=== PATIENT | male | born 1960 | race African-American/Black ===

== ENCOUNTER 2018-03-18 10:22 | Inpatient (IN) | payer MEDICAID, OTHER ==
[~2018-03-18] VITALS: Ht 170.2 cm; Wt 83.2 kg
[2018-03-18] MEDS ORDERED: ASPIRIN 81MG TABLET PO ONE (11:15)
[2018-03-18 12:28] LABS: BASOPHILS % 1.9 % (0.0-2.0); EOSINOPHILS % 0.2 % (0.0-5.0); HEMATOCRIT. 52.5 % (42.0-52.0); HEMOGLOBIN. 17.2 g/dL (14.0-18.0); MEAN CORPUSCULAR HEMOGLOBIN 28.3 pg (28.0-32.0); MEAN CORPUSCULAR VOLUME 86.6 fL (80.0-94.0); MEAN PLATELET VOLUME 9.7 fl (7.4-10.4); NEUTROPHILS % 62.9 % (40.0-76.0); PLATELET 328 x1000/uL (130-400); RED BLOOD CELL COUNT 6.07 mill/uL (4.7-6.1); RED CELL DISTRIBUTION WIDTH 18.7 % (11.6-14.6)
[2018-03-18 12:34] LABS: CHLORIDE 104 mEq/L (98-107)
[2018-03-18 13:44] LABS: *AMPHETAMINES SCREEN URINE PRESUMTIVE POSITIVE (NEGATIVE); *BARBITURATES SCREEN URINE NEGATIVE (NEGATIVE); *BENZODIAZEPINES SCREEN URINE NEGATIVE (NEGATIVE); *COCAINE SCREEN URINE PRESUMTIVE POSITIVE (NEGATIVE)
[2018-03-18 13:45] LABS: CANNABINOID URINE SCREEN PRESUMTIVE POSITIVE (NEGATIVE); METHADONE URINE SCREEN NEGATIVE (NEGATIVE); OPIATES URINE SCREEN NEGATIVE (NEGATIVE); PHENCYCLIDINE URINE SCREEN NEGATIVE (NEGATIVE)
[2018-03-18] MEDS ORDERED: ONDANSETRON HCL 4MG/2ML INJ IV PRN (15:30)
[2018-03-18] MEDS ORDERED: CLONIDINE 0.1MG TABLET PO PRN (15:30)
[2018-03-18] MEDS ORDERED: DOCUSATE SODIUM 100MG CAPSULE PO PRN (15:30)
[2018-03-18] MEDS ORDERED: ACETAMINOPHEN 325MG TABLET PO PRN (15:30)
[2018-03-18] MEDS ORDERED: NITROGLYCERIN 0.4MG TABLET SL SL PRN (15:30)
[2018-03-18] MEDS ORDERED: MAGNESIUM/ALUMINUM HYDROXIDE/SIMETHICONE 30ML UDC PO PRN (15:30)
[2018-03-18] MEDS ORDERED: GUAIFENESIN 200MG/10ML SUGAR FREE UDC PO PRN (15:30)
[2018-03-18] MEDS ORDERED: LORAZEPAM 0.5MG TABLET PO PRN (15:30)
[2018-03-18] MEDS ORDERED: NA PHOS,M-B/NA PHOS,DI-BA ENEMA 118ML PR PRN (15:30)
[2018-03-18] MEDS ORDERED: KETOROLAC 15MG/ML VIAL IV PRN (15:30)
[2018-03-18 15:45] VITALS: BP 134/93
[2018-03-18] MEDS ORDERED: ENOXAPARIN 40MG/0.4ML SYR SUBCUT SCH (17:00)
[2018-03-18] MEDS: DILTIAZEM HCL 60MG TABLET PO SCH ×2 (17:08→23:42)
[2018-03-18] MEDS ORDERED: DEXTROSE 50% WATER 50ML SYRINGE IV PRN (19:15)
[2018-03-18 20:00] VITALS: BP 102/70
[2018-03-18] MEDS: BLOOD SUGAR DIAGNOSTIC STRIP TEST SCH (20:12)
[2018-03-18] MEDS: INSULIN LISPRO 100 UNITS/ML SUBCUT SCH (20:19)
[2018-03-18] MEDS: IPRATROPIUM/ALBUTEROL 0.5-3(2.5)MG/3ML NEB INH PRN (20:23)
[2018-03-18] MEDS ORDERED: FAMOTIDINE 20MG TABLET PO SCH (21:00)
[2018-03-18] MEDS ORDERED: ZOLPIDEM TARTRATE 5MG TABLET PO PRN (21:00)
[2018-03-19] VITALS: BP 100/75
[2018-03-19] MEDS: IPRATROPIUM/ALBUTEROL 0.5-3(2.5)MG/3ML NEB INH PRN (00:43)
[2018-03-19 01:24] LABS: CREATINE KINASE MB FRACTION 1.9 ng/mL (0.5-3.6)
[2018-03-19 04:00] VITALS: BP 115/75
[2018-03-19] MEDS: DILTIAZEM HCL 60MG TABLET PO SCH ×2 (06:08→13:54)
[2018-03-19] MEDS: BLOOD SUGAR DIAGNOSTIC STRIP TEST SCH ×2 (06:24→12:20)
[2018-03-19 07:45] LABS: CREATINE KINASE 74 IU/L (39-308)
[2018-03-19 07:46] LABS: CREATINE KINASE MB FRACTION 1.8 ng/mL (0.5-3.6)
[2018-03-19] MEDS: INSULIN LISPRO 100 UNITS/ML SUBCUT SCH ×2 (07:50→13:50)
[2018-03-19 08:00] VITALS: BP 125/88
[2018-03-19] MEDS ORDERED: ASPIRIN 325MG EC TABLET PO SCH (09:00)
[2018-03-19 10:43] VITALS: BP 125/80
[2018-03-19 13:54] VITALS: BP 117/88
== END 2018-03-19 14:10 | disposition home or self-care (01) | DRG 816 ==
LOC: ER 10:22 → 6WST 13:07 → EDBEDREQ 13:12 → ENRESERV 13:15
PROVIDERS: ADMIT Internal Medicine; ATTEND Internal Medicine
DX: T40.5X1A Poisoning by cocaine, accidental (unintentional), initial encounter (principal); N17.0 Acute kidney failure with tubular necrosis; F14.10 Cocaine abuse, uncomplicated; E87.1 Hypo-osmolality and hyponatremia; F17.210 Nicotine dependence, cigarettes, uncomplicated; R74.0 Nonspecific elevation of levels of transaminase and lactic acid dehydrogenase [LDH]; I11.0 Hypertensive heart disease with heart failure; I25.10 Atherosclerotic heart disease of native coronary artery without angina pectoris; I50.9 Heart failure, unspecified; E11.9 Type 2 diabetes mellitus without complications; Y92.9 Unspecified place or not applicable; Z90.81 Acquired absence of spleen; I25.2 Old myocardial infarction; Z86.73 Personal history of transient ischemic attack (TIA), and cerebral infarction without residual deficits; Z95.810 Presence of automatic (implantable) cardiac defibrillator; Z90.3 Acquired absence of stomach [part of]; Z71.6 Tobacco abuse counseling; Y92.89 Other specified places as the place of occurrence of the external cause
CPT/HCPCS: 36415; 71045; 80061; 80185; 80305; 82550; 82553; 82962; 83036; 83880; 84484; 93005; 93970; 99285; 99406; J1650; J1815; J7620